=== PATIENT | male | born 1995 | race Caucasian/White ===

== ENCOUNTER 2020-05-27 09:05 | Emergency (ER) | payer OTHER ==
[2020-05-27 09:12] VITALS: BP 130/82; PULSE 81; RESP 16; TEMP 98.1
[2020-05-27] MEDS ORDERED: DIPH,PERTUS(ACELL)TETVAC-LF 0.5 ML VIAL IM ONE (09:17)
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
--- NOTE | 2020-05-27 09:33 | XR ---
EXAMINATION TYPE: XR elbow complete RT DATE OF EXAM: 05/27/2020 COMPARISON: NONE HISTORY: Pain FINDINGS: Three views of the elbow demonstrate no pathologic joint effusion. The osseous structures are intact . There is no acute fracture or dislocation. Soft tissue defect may be related to small laceration and punctate densities subcutaneous which could represent tiny foreign body. IMPRESSION: 1. No acute fracture or dislocation. If symptoms persist follow-up study in 7 to 10 days could be ob tained. 2. Correlate for soft tissue injury. Punctate hyperdensities in the soft tissues adjacent to the medi al epicondyles and distal ulna could represent tiny foreign body.
[2020-05-27] MEDS ORDERED: ACET/COD 300 MG/30 MG STARTER PACK 6 TAB BTL PO STA (09:43)
== END 2020-05-27 10:00 | disposition home or self-care (01) ==
LOC: EC 09:05
DX: S50.01XA Contusion of right elbow, initial encounter (principal); S61.401A Unspecified open wound of right hand, initial encounter; Z23 Encounter for immunization; V86.59XA Driver of other special all-terrain or other off-road motor vehicle injured in nontraffic accident, initial encounter; Y92.89 Other specified places as the place of occurrence of the external cause
CPT/HCPCS: 90471; 90715; 99283